=== PATIENT | female | born 1995 | race Caucasian/White ===

== ENCOUNTER 2017-07-28 21:13 | Emergency (ER) | payer OTHER ==
[~2017-07-28] VITALS: Ht 160 cm; Wt 63.5 kg
[~2017-07-28 21:13] MED LIST: DOXY100C41 PO; FLUC150T PO; PRED50TA PO
--- NOTE | 2017-07-28 21:57 | NUR ---
Pt to room c/o flu like symptoms for 1 wk with "clogged" pressure pain to both ears x 2 days. Resp even and unlabored. No resp distress noted. Pt resting in position of comfort for self, awaiting further eval,.
--- NOTE | 2017-07-28 22:31 | NUR ---
Pt seen by Dr. Rangel. Pt stable for discharge per MD. Pt given ACI. Pt verbalized understanding of dc instructions. Pt ambulated out of ER with steady gait.
[2017-07-28 22:32] VITALS: BP 112/77
== END 2017-07-28 22:33 | disposition home or self-care (01) ==
LOC: ER 21:17
DX: J32.9 Chronic sinusitis, unspecified (principal); Z88.0 Allergy status to penicillin
CPT/HCPCS: 99283; A4663; J7512; Q0144

== ENCOUNTER 2017-12-16 19:15 | Emergency (ER) | payer OTHER ==
[~2017-12-16] VITALS: Ht 160 cm; Wt 61.2 kg
[2017-12-16] MEDS ORDERED: ALBUTEROL SULFATE 2.5 MG/3 ML NEBU NEB ONE (20:00)
[2017-12-16] MEDS ORDERED: ALBUTEROL SULFATE 2.5 MG/3 ML NEBU ONE (20:23)
--- NOTE | 2017-12-16 21:09 | NUR ---
Patient discharged to home in stable conditon. Written and verbal after care instructions given. Patient verbalizes understanding of instructions.
== END 2017-12-16 21:10 | disposition home or self-care (01) ==
LOC: ER 19:15
DX: J45.909 Unspecified asthma, uncomplicated (principal); Z88.0 Allergy status to penicillin
CPT/HCPCS: 93005; A4663

== ENCOUNTER 2018-02-04 14:42 | Emergency (ER) | payer OTHER ==
[~2018-02-04] VITALS: Ht 160 cm; Wt 61.2 kg
--- NOTE | 2018-02-04 15:18 | NUR ---
PT IS IN ROOM #2B. DR CESPEDES EVALUATED THE PT.
--- NOTE | 2018-02-04 15:52 | NUR ---
Patient discharged to home in stable conditon. Written and verbal after care instructions given. Patient verbalizes understanding of instructions.
[2018-02-04 15:54] VITALS: BP 128/72
== END 2018-02-04 15:55 | disposition home or self-care (01) ==
LOC: ER 14:42
DX: R07.89 Other chest pain (principal); J40 Bronchitis, not specified as acute or chronic; J45.909 Unspecified asthma, uncomplicated; Z88.0 Allergy status to penicillin
CPT/HCPCS: 93005; A4663

== ENCOUNTER 2018-06-22 22:05 | Emergency (ER) | payer OTHER ==
[~2018-06-22] VITALS: Ht 160 cm; Wt 59.0 kg
--- NOTE | 2018-06-22 22:25 | NUR ---
Pt provided urine sample, sent to lab.
--- NOTE | 2018-06-22 22:30 | NUR ---
Dr. Contreras at bedside for MSE.
[2018-06-22 22:41] LABS: *BILIRUBIN,URIN NEGATIVE (NEGATIVE); *BLOOD, URINE Trace-lysed (NEGATIVE); *CLARITY,URINE CLEAR (CLEAR); *COLOR,URINE YELLOW (YELLOW); *KETONES,URINE NEGATIVE (NEGATIVE); *PROTEIN,URINE NEGATIVE (NEGATIVE); *UROBILINOGEN,URINE 0.2 E.U./dl (NORMAL); LEUKOCYTE ESTERASE ,URINE NEGATIVE (NEGATIVE); NITRITE, URINE NEGATIVE (NEGATIVE); UGLUCOSE NEGATIVE (NEGATIVE)
[2018-06-22] MEDS ORDERED: ONDANSETRON 4 MG/2 ML VIAL ONE (22:43)
[2018-06-22] MEDS ORDERED: PANTOPRAZOLE SODIUM 40 MG VIAL ONE (22:43)
[2018-06-22] MEDS ORDERED: KETOROLAC TROMETHAMINE 30 MG INJ ONE (22:44)
[2018-06-22] MEDS ORDERED: KETOROLAC TROMETHAMINE 30 MG INJ IVP ONE (22:45)
[2018-06-22] MEDS ORDERED: ONDANSETRON 4 MG/2 ML VIAL IV ONE (22:45)
[2018-06-22] MEDS ORDERED: IV NORMAL SALINE 1000 ML BAG IV ONE ×2 (22:45→23:45)
[2018-06-22] MEDS ORDERED: PANTOPRAZOLE SODIUM 40 MG VIAL IV ONE (22:45)
[2018-06-22 22:46] LABS: BACTERIA,URINE NONE SEEN /HPF (NONE SEEN); RBC,URINE 0-3 /HPF (0-3); SQUAMOUS EPITHELIAL CELL,UR FEW /HPF (NONE SEEN); WBC,URINE 0-3 /HPF (0-3)
[2018-06-22 22:57] LABS: BASOPHILS # (AUTO) 0.1 K/uL (0.0-8.0); BASOPHILS % (AUTO) 0.5 % (0.0-2.0); EOSINOPHILS # (AUTO) 0.3 K/uL (0.0-0.7); EOSINOPHILS % (AUTO) 3.5 % (0.0-7.0); HEMATOCRIT 41.9 % (31.2-41.9); HEMOGLOBIN 14.4 g/dL (10.9-14.3); LYMPHOCYTES # (AUTO) 2.7 K/uL (20.0-40.0); LYMPHOCYTES % (AUTO) 28.2 % (20.5-51.5); MEAN CORPUSCULAR HEMOGLOBIN 31.5 uug (24.7-32.8); MEAN CORPUSCULAR HGB CONC 34 g/dL (32.3-35.6); MEAN CORPUSCULAR VOLUME 91.7 fL (75.5-95.3); MONOCYTES # (AUTO) 0.6 K/uL (2.0-10.0); MONOCYTES % (AUTO) 6.4 % (0.0-11.0); NEUTROPHILS # (AUTO) 5.8 K/uL (1.8-8.9); NEUTROPHILS % (AUTO) 61.4 % (38.5-71.5); PLATELET COUNT (AUTO) 161 K/uL (179-408); RED BLOOD CELL COUNT(AUTO) 4.57 MIL/uL (3.63-4.92); WHITE BLOOD COUNT (AUTO) 9.5 K/uL (3.8-11.8)
[2018-06-22 23:05] LABS: POTASSIUM 3.4 mmol/L (3.5-5.1)
[2018-06-22 23:06] LABS: CREATININE 0.9 mg/dL (0.6-1.3)
[2018-06-22 23:11] LABS: BILIRUBIN,DIRECT 0.1 mg/dL (0.0-0.2); BILIRUBIN,TOTAL 0.5 mg/dL (0.2-1.0); TOTAL PROTEIN, SERUM 8.1 g/dL (6.4-8.2)
--- NOTE | 2018-06-22 23:31 | NUR ---
Pt states abd pain is still there, about a 5/10, no more nausea, doesn't want anymore pain meds for now.
--- NOTE | 2018-06-22 23:48 | NUR ---
Pt out of ER for Xray.
--- NOTE | 2018-06-23 00:04 | NUR ---
Pt back to ER from Xray.
--- NOTE | 2018-06-23 01:00 | NUR ---
Patient discharged to home in stable conditon. Written and verbal after care instructions given. Patient verbalizes understanding of instructions. Pt ambulated out of ER with steady gait, no acute signs of distress, VSS, all belongings taken, IV site discontinued.
[2018-06-23 01:13] VITALS: BP 119/85
== END 2018-06-23 01:14 | disposition home or self-care (01) ==
LOC: ER 22:07
DX: R11.10 Vomiting, unspecified (principal); R19.7 Diarrhea, unspecified; R10.32 Left lower quadrant pain; J45.909 Unspecified asthma, uncomplicated; Z88.0 Allergy status to penicillin
CPT/HCPCS: 36415; 74021; 80048; 80076; 81001; 84703; 85025; 96361; 96374; 96375; 99285; A4663; C9113; J1885; J2405; J7030 ×2